=== PATIENT | male | born 1955 | race Caucasian/White ===

== ENCOUNTER 2024-02-02 08:57 | Inpatient (IN) ==
--- NOTE | 2024-02-02 09:26 | Emergency Department Note ---
Impression & Plan Cerebellar stroke, Ambulatory dysfunction ED Provider Note HISTORY OF PRESENT ILLNESS: Patient is a 68 year old male presenting with gait instability. Patient reports that yesterday morning he woke up and had difficulties walking around. States that when he ambulates he starts falling and leaning to the right and has to grab onto something to keep from falling over. Reports that this continued throughout the day yesterday, and when symptoms persisted into this morning, he decided to be evaluated. Patient reports he has been having daily headaches and upper neck pain for the last 6 months. Reports that he does not have a primary care provider and takes no medications. Denies any chest pain or shortness of breath. Denies any numbness, tingling or weakness in extremities. Reports that the vision in his right eye has been slightly blurry as compared to his left eye. ROS: as above PHYSICAL EXAM: Constitutional: Patient appears in no acute distress. HENT: Head: Normocephalic and atraumatic. Eyes: EOMI, PERRL Mouth/Throat: Mucous membranes moist. Neck: Trachea midline. Neck supple. Cardiovascular: RRR, No murmurs, rubs or gallops. Intact distal pulses. Pulmonary/Chest: No respiratory distress. Breath sounds clear and equal bilaterally. No wheezes or rales. Abdominal: Abdomen soft, no tenderness, rebound or guarding. Musculoskeletal: No edema, tenderness or deformity noted. Skin: Warm and dry. No rash, erythema, pallor or cyanosis Psychiatric: Appropriate mood and affect for situation. Neurological: Alert and keenly responsive. Facies symmetric. Able to raise eyebrows, close eyes, smile, puff mouth, stick out tongue, move tongue left and right and raise palate symmetrically. Able to shrug shoulders. PERRLA. SILT to forehead below eye and at jawline. Can hear soft noise bilaterally. Good finger to nose. Strength 5/5 in bilateral upper and lower extremities. SILT throughout bilateral upper and lower extremities. Patient does begin to fall to the right when ambulating. MDM: - Vitals signs showed hypertension and bradycardia. - History obtained via patient. History as above. - Chronic conditions affecting care: none - Differential diagnoses include, but are not limited to: CVA; intracranial hemorrhage; intracranial mass; ACS; dysrhythmia - Order placed for continuous cardiac monitoring. At this time, monitor showed rate of 50 bpm with normal sinus rhythm, per my interpretation. - External medical records reviewed. - EKG interpreted by myself showed normal sinus rhythm. Rate bradycardic at 58 bpm. QT 444. No acute ischemic changes. - Laboratory workup interpreted by myself showed normal WBC; normal PT/INR; stable electrolytes; normal troponin - CXR negative for pneumonia, per my interpretation - CT head wo contrast showed an old right cerebellar infarct. - CTA head/neck showed atherosclerotic plaque of the carotid bulbs resulting in 60% stenosis. - Patient's symptoms have been ongoing for >24 hours, so not a TNK candidate. - Given patient's symptoms and workup findings, will need admission for further stroke workup and medical optimization. - Discussion was had with case managers about patient's case and need for admission - Hospitalist consulted for admission - Patient admitted to [facility]ist service for further evaluation and management. ASSESSMENT AND PLAN: Diagnosis: cerebellar stroke; ambulatory dysfunction Plan: admit Past Med/Surg History Problem List (Updated 02/02/24 @ 11:21 by Deborah Saleh MD) Ambulatory dysfunction (Acute) Cerebellar stroke (Acute) Social History Smoking Status: Never smoker Preferred Language: Turkish Feels Safe at Home: Yes Allergies Allergies Allergy/AdvReac Type Severity Reaction Status Date / Time Penicillins Allergy Unknown RASH Verified 04/16/16 10:56 Home Meds Home Medications Medication Instructions Recorded Confirmed No Known Home Medications 02/02/24 02/02/24 Results & Data (ED) Vital Signs Vital Signs - 24 hr 02/02/24 09:00 02/02/24 09:12 02/02/24 09:21 Temperature 36.3 C L Temperature Source Temporal Artery Scan Pulse Rate 58 L 57 L Pulse Rate [Apical] Respiratory Rate 22 20 Respiratory Effort / Characteristics Respiratory Depth Blood Pressure 190/108 H 182/83 H Blood Pressure [Left Arm] Blood Pressure Mean 135 133 Blood Pressure Mean [Left Arm] Blood Pressure Position [Left Arm] Pulse Oximetry 95 Oxygen Delivery Method Oxygen Flow Rate Sepsis Recent Fever Within 48 Hours No Sepsis New/Unexplained Change in Mental Status N/A Sepsis Action Taken by Nursing No Action Required 02/02/24 09:21 02/02/24 09:21 02/02/24 09:21 Temperature Temperature Source Pulse Rate Pulse Rate [Apical] Respiratory Rate Respiratory Effort / Characteristics Respiratory Depth Blood Pressure 182/83 H 182/83 H 182/83 H Blood Pressure [Left Arm] Blood Pressure Mean 133 133 133 Blood Pressure Mean [Left Arm] Blood Pressure Position [Left Arm] Pulse Oximetry Oxygen Delivery Method Oxygen Flow Rate Sepsis Recent Fever Within 48 Hours Sepsis New/Unexplained Change in Mental Status Sepsis Action Taken by Nursing 02/02/24 09:21 02/02/24 09:22 02/02/24 09:24 Temperature Temperature Source Pulse Rate 58 L Pulse Rate [Apical] Respiratory Rate 14 Respiratory Effort / Characteristics Respiratory Depth Blood Pressure Blood Pressure [Left Arm] Blood Pressure Mean Blood Pressure Mean [Left Arm] Blood Pressure Position [Left Arm] Pulse Oximetry 96 96 Oxygen Delivery Method Room Air Room Air Oxygen Flow Rate 0 0 Sepsis Recent Fever Within 48 Hours Sepsis New/Unexplained Change in Mental Status Sepsis Action Taken by Nursing 02/02/24 09:25 02/02/24 09:27 02/02/24 09:43 Temperature Temperature Source Pulse Rate 59 L Pulse Rate [Apical] 75 Respiratory Rate 16 16 Respiratory Effort / Characteristics Respiratory Depth Blood Pressure Blood Pressure [Left Arm] 182/83 H Blood Pressure Mean Blood Pressure Mean [Left Arm] 116 Blood Pressure Position [Left Arm] Pulse Oximetry 96 96 Oxygen Delivery Method Room Air Room Air Oxygen Flow Rate Sepsis Recent Fever Within 48 Hours Sepsis New/Unexplained Change in Mental Status Sepsis Action Taken by Nursing 02/02/24 09:48 02/02/24 10:00 02/02/24 10:21 Temperature Temperature Source Pulse Rate 54 L 52 L 51 L Pulse Rate [Apical] Respiratory Rate 17 15 18 Respiratory Effort / Characteristics Respiratory Depth Blood Pressure Blood Pressure [Left Arm] Blood Pressure Mean Blood Pressure Mean [Left Arm] Blood Pressure Position [Left Arm] Pulse Oximetry Oxygen Delivery Method Oxygen Flow Rate Sepsis Recent Fever Within 48 Hours Sepsis New/Unexplained Change in Mental Status Sepsis Action Taken by Nursing 02/02/24 10:30 02/02/24 11:17 Temperature Temperature Source Pulse Rate 52 L Pulse Rate [Apical] 50 L Respiratory Rate 12 18 Respiratory Effort / Characteristics Non-Labored Spontaneous Respiratory Depth Normal Blood Pressure Blood Pressure [Left Arm] 188/88 H Blood Pressure Mean Blood Pressure Mean [Left Arm] 121 Blood Pressure Position [Left Arm] Sitting Pulse Oximetry 96 Oxygen Delivery Method Room Air Oxygen Flow Rate Sepsis Recent Fever Within 48 Hours Sepsis New/Unexplained Change in Mental Status Sepsis Action Taken by Nursing Laboratory Data 02/02/24 09:15 02/02/24 09:15 Lab Results 02/02/24 02/02/24 Range/Units 09:15 09:20 WBC 7.89 (4.8-10.8) K/ul RBC 5.31 (4.70-6.10) M/uL Hgb 15.4 (14.0-18.0) g/dl POC Hgb 15.6 (14.0-18.0) g/dl Hct 44.6 (42.0-52.0) % POC Hct 46 (42-52) % MCV 84.0 (80.0-100.0) fL MCH 29.0 (25.0-34.0) pg MCHC 34.5 (32.0-36.0) g/dL RDW Std Deviation 39.5 (36.4-46.3) fL RDW Coeff of Sage 12.9 (11.5-14.5) % Plt Count 199 (130-400) K/uL MPV 10.3 (9.4-12.4) fL PT 10.9 (9.0-12.0) Seconds INR 1.0 (0.9-1.1) APTT 21 (21-31) Seconds PTT Ratio 0.8 POC Sodium 138 (135-144) mmol/L Sodium 135 L (136-145) mmol/L POC Potassium 4.1 (3.3-5.0) mmol/L Potassium 4.3 (3.5-5.1) mmol/L POC Chloride 104 (101-112) mmol/L Chloride 105 (98-107) mmol/L Carbon Dioxide 23 (21-32) mmol/L POC Total CO2 22 L (24-31) mmol/L Anion Gap 7 (3-11) POC Anion Gap 16.0 (16-25) mmol/L POC BUN 19 H (7-18) mg/dl BUN 19 (6-23) mg/dl Creatinine 0.92 (0.6-1.4) mg/dl POC Creatinine 0.9 (0.6-1.3) mg/dl Est Cr Clr Drug Dosing Not Reportable Est GFR ( Amer) 100.1 ml/min Est GFR (Non-Af Amer) 86.4 ml/min BUN/Creatinine Ratio 20.7 H (10-20) Glucose 110 H (70-99(Fasting)) mg/dl POC Glucose (other) 110 H (70-99) mg/dl Calcium 9.7 (8.6-10.3) mg/dl POC Ioniz Calcium Hitesh 1.21 (1.12-1.32) mmol/l Magnesium 1.9 (1.7-2.4) mg/dl Total Bilirubin 0.6 (0.2-1.0) mg/dl AST 23 (13-39) U/L ALT 35 (7-52) U/L Alkaline Phosphatase 82 (34-104) U/L Troponin I High Sens 18.7 (0-20) pg/ml Total Protein 7.9 (6.0-8.3) gm/dl Albumin 4.4 (3.4-5.0) gm/dl Globulin 3.5 (2.5-4.0) gm/dl Albumin/Globulin Ratio 1.3 (0.9-2) Administered Medications Discontinued Medications Ioversol (Optiray 320 125ml) 119 ml IV ONCE ONE Stop: 02/02/24 09:37 Last Admin: 02/02/24 09:36 Dose: 119 ml Documented By: Gaurav [employer] Data Radiologist's Impression: Chest X-Ray 02/02/24 09:21 XR chest 1V portable HISTORY: Stroke symptoms. COMPARISON: None. FINDINGS: No pneumothorax. No pleural effusions. No focal lung consolidations to suggest a pneumonia. No evidence for pulmonary edema. The cardiac silhouette is mildly enlarged. No acute fractures. IMPRESSION: Mild cardiomegaly. Otherwise, no acute process within the chest. ACT 112: Negative or not required by law. Electronically signed by: Floyd Carvalho M.D. 02/02/2024 10:[address] 02/02/24 09:[address] DOSE: HISTORY: Neuro deficit, acute, stroke suspected TECHNIQUE: Multiaxial CT images of the head were performed without the use of intravenous contrast. Automated exposure control was utilized for this study. A dose lowering technique was utilized adhering to the principles of ALARA. Comparison: None. Findings: The paranasal sinuses and mastoid air cells are clear. The calvarium and skull base are intact. There is no mass, hematoma, midline shift, acute infarct. White matter hypodensity is nonspecific but suggestive of microvascular ischemic change. The ventricles and sulci demonstrate mild age-related involutional changes. Cephalization within the right inferior cerebellar hemisphere consistent with an old infarct. Impression: 1. No acute infarct or intracranial hemorrhage. 2. Old right cerebellar infarct. ACT 112: Negative or not required by law. Electronically signed by: Floyd Carvalho M.D. 02/02/2024 10:09 AM Head CTA 02/02/24 09:21 CT angio head w con, CT angio neck with con CLINICAL HISTORY: 68 years-old Male with gait instability - falling to R side. Acute strokelike symptoms COMPARISON STUDY: Head CT of same day TECHNIQUE: Following the IV administration of Optiray, CT angiogram of the head and neck was performed from the aortic arch to the skull apex. Images are reviewed in the axial, sagittal, and coronal planes. 3-D MIPS images are created and assessed. IV contrast was administered without complication. All measurements were obtained according to NASCET criteria. A dose lowering technique was utilized adhering to the principles of ALARA. CT DOSE: 1083.87 mGy.cm FINDINGS: CT ANGIOGRAM OF THE HEAD AND NECK: Three-vessel morphology of the thoracic aortic arch. There is patency of the innominate and image subclavian arteries. Common carotid arteries are patent. There is at least moderate atherosclerosis of the carotid bulbs and proximal cervical segments of the internal carotid arteries. There is less than 50% stenosis of the proximal cervical segment right ICA. There is approximately 60% stenosis of the proximal cervical segment left ICA. There is multifocal luminal narrowing of the right greater than left middle cerebral arteries which is probably mild. Mild stenosis of the anterior cerebral arteries. Dominant left vertebral artery which is patent. Atherosclerosis of the V4 segment results in mild stenosis. The right vertebral artery is developmentally diminutive and appears to terminate within the right PICA. There is mild to moderate multifocal stenoses within the posterior cerebral arteries.. Dural sinuses appear patent. Chronic appearing right cerebellar infarct. Lung apices are clear without pneumothorax. Unremarkable soft tissues. IMPRESSION: 1. Atherosclerotic plaque of the carotid bulbs results in 60% stenosis of the proximal cervical segment left ICA. 2. Mild multifocal stenoses of the intracranial arteries. 3. Chronic right cerebellar infarct. 4. No aneurysm, dissection, high-grade stenosis or arterial occlusion identified. ACT 112: Negative or not required by law. The above report was generated using voice recognition software. It may contain grammatical, syntax or spelling errors. Electronically signed by: Michael Beach M.D. 02/02/2024 10:18 AM Neck CTA 02/02/24 09:21 CT angio head w con, CT angio neck with con CLINICAL HISTORY: 68 years-old Male with gait instability - falling to R side. Acute strokelike symptoms COMPARISON STUDY: Head CT of same day TECHNIQUE: Following the IV administration of Optiray, CT angiogram of the head and neck was performed from the aortic arch to the skull apex. Images are reviewed in the axial, sagittal, and coronal planes. 3-D MIPS images are created and assessed. IV contrast was administered without complication. All measurements were obtained according to NASCET criteria. A dose lowering technique was utilized adhering to the principles of ALARA. CT DOSE: 1083.87 mGy.cm FINDINGS: CT ANGIOGRAM OF THE HEAD AND NECK: Three-vessel morphology of the thoracic aortic arch. There is patency of the innominate and image subclavian arteries. Common carotid arteries are patent. There is at least moderate atherosclerosis of the carotid bulbs and proximal cervical segments of the internal carotid arteries. There is less than 50% stenosis of the proximal cervical segment right ICA. There is approximately 60% stenosis of the proximal cervical segment left ICA. There is multifocal luminal narrowing of the right greater than left middle cerebral arteries which is probably mild. Mild stenosis of the anterior cerebral arteries. Dominant left vertebral artery which is patent. Atherosclerosis of the V4 segment results in mild stenosis. The right vertebral artery is developmentally diminutive and appears to terminate within the right PICA. There is mild to moderate multifocal stenoses within the posterior cerebral arteries.. Dural sinuses appear patent. Chronic appearing right cerebellar infarct. Lung apices are clear without pneumothorax. Unremarkable soft tissues. IMPRESSION: 1. Atherosclerotic plaque of the carotid bulbs results in 60% stenosis of the proximal cervical segment left ICA. 2. Mild multifocal stenoses of the intracranial arteries. 3. Chronic right cerebellar infarct. 4. No aneurysm, dissection, high-grade stenosis or arterial occlusion identified. ACT 112: Negative or not required by law. The above report was generated using voice recognition software. It may contain grammatical, syntax or spelling errors. Electronically signed by: Michael Beach M.D. 02/02/2024 10:18 AM Discharge Plan Visit Data Chief Complaint: Neuro Symptoms/Deficit Stated Complaint: DIZZY, LOSS OF BALANCE, NECK/HEAD PAIN ED Provider: Deborah Saleh Discharge Problem: Cerebellar stroke, Ambulatory dysfunction Forms Stand Alone Forms: [facility] Prescriptions Prescriptions: No Action No Known Home Medications Referrals Referrals: Red Chun DO [Primary Care Provider] -
[2024-02-02 09:32] LABS: iSTAT Creatinine 0.9 mg/dl (0.6-1.3); iSTAT Hemoglobin 15.6 g/dl (14.0-18.0); iSTAT Ionized Calcium 1.21 mmol/l (1.12-1.32); iSTAT Potassium 4.1 mmol/L (3.3-5.0)
[2024-02-02] MEDS: OPTIRAY 320 125ml IV ONE (09:36)
[2024-02-02 09:56] LABS: Hematocrit (blood only) 44.6 % (42.0-52.0); Hemoglobin 15.4 g/dl (14.0-18.0); Mean Corpuscular Hgb Conc 34.5 g/dL (32.0-36.0); Mean Platelet Volume 10.3 fL (9.4-12.4); Platelet Count 199 K/uL (130-400); RDW Coefficient of Variation 12.9 % (11.5-14.5); RDW Standard Deviation 39.5 fL (36.4-46.3); Red Blood Count 5.31 M/uL (4.70-6.10); White Blood Count 7.89 K/ul (4.8-10.8)
--- NOTE | 2024-02-02 10:10 | CT Scan Report ---
HEAD CT NONCONTRAST CT DOSE: HISTORY: Neuro deficit, acute, stroke suspected TECHNIQUE: Multiaxial CT images of the head were performed without the use of intravenous contrast. A utomated exposure control was utilized for this study. A dose lowering technique was utilized adheri ng to the principles of ALARA. Comparison: None. Findings: The paranasal sinuses and mastoid air cells are clear. The calvarium and skull base are int act. There is no mass, hematoma, midline shift, acute infarct. White matter hypodensity is nonspecifi c but suggestive of microvascular ischemic change. The ventricles and sulci demonstrate mild age-rela monica involutional changes. Cephalization within the right inferior cerebellar hemisphere consistent wi th an old infarct. Impression: 1. No acute infarct or intracranial hemorrhage. 2. Old right cerebellar infarct. ACT 112: Negative or not required by law. Electronically signed by: Floyd Carvalho M.D. 02/02/2024 10:09 AM
[2024-02-02 10:15] LABS: Partial Thromboplastin Ratio 0.8; Partial Thromboplastin Time 21 Seconds (21-31); Prothrombin Time 10.9 Seconds (9.0-12.0)
[2024-02-02 10:17] LABS: Alanine Aminotransferase 35 U/L (7-52); Albumin Globulin Ratio 1.3 (0.9-2); Albumin Level 4.4 gm/dl (3.4-5.0); Alkaline Phosphatase 82 U/L (34-104); Anion Gap 7 (3-11); Aspartate Aminotransferase 23 U/L (13-39); BUN Creatinine Ratio 20.7 (10-20); Bilirubin,Total 0.6 mg/dl (0.2-1.0); Blood Urea Nitrogen 19 mg/dl (6-23); Calcium 9.7 mg/dl (8.6-10.3); Carbon Dioxide 23 mmol/L (21-32); Chloride 105 mmol/L (98-107); Est GFR (African American) 100.1 ml/min; Est GFR (Non-African American) 86.4 ml/min; Globulin 3.5 gm/dl (2.5-4.0); Glucose 110 mg/dl (70-99(Fasting)); Magnesium 1.9 mg/dl (1.7-2.4); Potassium 4.3 mmol/L (3.5-5.1); Sodium 135 mmol/L (136-145); Total Protein 7.9 gm/dl (6.0-8.3)
--- NOTE | 2024-02-02 10:20 | CT Scan Report ---
CT angio head w con, CT angio neck with con CLINICAL HISTORY: 68 years-old Male with gait instability - falling to R side. Acute strokelike sy mptoms COMPARISON STUDY: Head CT of same day TECHNIQUE: Following the IV administration of Optiray, CT angiogram of the head and neck was performe d from the aortic arch to the skull apex. Images are reviewed in the axial, sagittal, and coronal joe danitza. 3-D MIPS images are created and assessed. IV contrast was administered without complication. All measurements were obtained according to NASCET criteria. A dose lowering technique was utilized adhe ring to the principles of ALARA. CT DOSE: 1083.87 mGy.cm FINDINGS: CT ANGIOGRAM OF THE HEAD AND NECK: Three-vessel morphology of the thoracic aortic arch. There is patency of the innominate and image sub clavian arteries. Common carotid arteries are patent. There is at least moderate atherosclerosis of t he carotid bulbs and proximal cervical segments of the internal carotid arteries. There is less than 50% stenosis of the proximal cervical segment right ICA. There is approximately 60% stenosis of the p roximal cervical segment left ICA. There is multifocal luminal narrowing of the right greater than left middle cerebral arteries which i s probably mild. Mild stenosis of the anterior cerebral arteries. Dominant left vertebral artery whic h is patent. Atherosclerosis of the V4 segment results in mild stenosis. The right vertebral artery i s developmentally diminutive and appears to terminate within the right PICA. There is mild to moderat e multifocal stenoses within the posterior cerebral arteries.. Dural sinuses appear patent. Chronic appearing right cerebellar infarct. Lung apices are clear without pneumothorax. Unremarkable soft tissues. IMPRESSION: 1. Atherosclerotic plaque of the carotid bulbs results in 60% stenosis of the proximal cervical segme nt left ICA. 2. Mild multifocal stenoses of the intracranial arteries. 3. Chronic right cerebellar infarct. 4. No aneurysm, dissection, high-grade stenosis or arterial occlusion identified. ACT 112: Negative or not required by law. The above report was generated using voice recognition software. It may contain grammatical, syntax o r spelling errors. Electronically signed by: Michael Beach M.D. 02/02/2024 10:18 AM
[2024-02-02 10:22] LABS: Troponin I High Sensitivity 18.7 pg/ml (0-20)
--- NOTE | 2024-02-02 10:44 | XRay Report ---
XR chest 1V portable HISTORY: Stroke symptoms. COMPARISON: None. FINDINGS: No pneumothorax. No pleural effusions. No focal lung consolidations to suggest a pneumonia. No evidence for pulmonary edema. The cardiac silhouette is mildly enlarged. No acute fractures. IMPRESSION: Mild cardiomegaly. Otherwise, no acute process within the chest. ACT 112: Negative or not required by law. Electronically signed by: Floyd Carvalho M.D. 02/02/2024 10:42 AM
--- NOTE | 2024-02-02 11:43 | History & Physical Report ---
Date of Service February 02, 2024 Assessment & Plan (1) Ambulatory dysfunction: (2) Cerebellar stroke: Plan Pt is a 68yoM with PMHx significant for OA s/p left total hip arthroplasty presenting with with gait unsteadiness/imbalance where he states he falls to the right. Gait Imbalance Ambulatory dysfunction Vision changes Pt states for the past day, has been falling to the right as he walks Also notes new pain behind the right eye with blurry vision, notes he does use glasses Head CT, head and neck CTA noting a chronic right cerebellar infarct, no new infarcts Head and neck CTA also noting "Atherosclerotic plaque of the carotid bulbs results in 60% stenosis of the proximal cervical segment left ICA and Mild multifocal stenoses of the intracranial arteries" MRI brain pending to rule out acute stroke AM hgba1c and lipid panel Started on atorvastatin 40mg daily and aspirin 81mg for secondary prevention Neurology consulted, appreciate further recs PT/OT, speech evals fall precautions Uncontrolled hypertension BP elevated at 190/108 on arrival, has since trended down EKG noting sinus bradycardia with occasional PVCs Trop trend of 18.7 to elevated 21.5 thus far Echo ordered and pending in setting of above Will allow permissive HTN until acute stroke ruled out with MRI Continue to monitor Sinus Bradycardia HR in the 50s EKG noting sinus bradycardia with occasional PVCs Echo ordered and pending Continue to monitor on telemetry Diet: HH (passed dysphagia screen) DVT prophlaxis: SCDs until cleared by Neuro for chemical ppx Dispo: admit to med/surg with tele History of Present Illness Chief Complaint: falls to the right Primary Care Provider: Phillip Hopkins MD Pt is a 68yoM with PMHx significant for OA s/p left total hip arthroplasty presenting with with gait unsteadiness/imbalance where he states he falls to the right. Hx obtained mostly from pt, sister also at bedside. Pt states that he started noticing the difficulty with ambulation from the day before, has been leaning to the right when he falls. States he has also noted pain behind his right eye with blurry vision that started around that time. His sister does note that he wears glasses at baseline and does not have them with him currently. He denies any trauma to the right eye, states it feels swollen. He states he has been having headaches for months that started as neck pain. Anita stiff and sore. Denies trouble swallowing. Denies chest pain, SOB or palpitations. Denies N/V or abdominal pain. States he does get lower extremity swelling that seems worse at the end of the day. Notes that he does not have a pcp and is not on medications currently. Denies using any OTC medication. States he last followed with [facility] about a year and a half ago when he had his hip replaced. Allergies Allergy/AdvReac Type Severity Reaction Status Date / Time Penicillins Allergy Unknown RASH Verified 04/16/16 10:56 Home Medications Medication Instructions Recorded Confirmed Type No Known Home Medications 02/02/24 02/02/24 History Past Med/Surg History Problem List (Updated 02/02/24 @ 11:21 by Deborah Saleh MD) Ambulatory dysfunction (Acute) Cerebellar stroke (Acute) Social History Smoking Status: Never smoker Preferred Language: Greek Feels Safe at Home: Yes Review of Systems Review of Systems: All systems reviewed & are unremarkable except as noted in Subjective Physical Exam Physical Exam: General: Alert, orientedx3. No acute distress Skin: No noted rashes or bruises Psych: Appropriate mood and affect Neuro: right eye appears smaller than the left, sitting up with arms outstretched, pt sways to the right occasionally. Strength equal, 5/5 in both upper and lower extremities bilaterally. HEENT: NC/AT, right eye appears smaller than left CV: RRR Resp: Breath sounds clear bilaterally, no increased effort of breathing. Abdomen: Soft, nontender Extremities: Trace edema in lower extremities bilaterally. Results & Data Results & Data Vital Signs (Past 12 Hours) Vital Signs Temp Pulse Pulse Resp BP BP Pulse Ox 02/02/24 11:17 50 L 18 188/88 H 96 02/02/24 10:30 52 L 12 02/02/24 10:21 51 L 18 02/02/24 10:00 52 L 15 02/02/24 09:48 54 L 17 02/02/24 09:43 59 L 02/02/24 09:27 16 96 02/02/24 09:25 75 16 182/83 H 96 02/02/24 09:24 96 02/02/24 09:22 96 02/02/24 09:21 58 L 14 02/02/24 09:21 182/83 H 02/02/24 09:21 182/83 H 02/02/24 09:21 182/83 H 02/02/24 09:21 182/83 H 02/02/24 09:12 57 L 20 02/02/24 09:00 36.3 C L 58 L 22 190/108 H 95 O2 Del Method O2 Flow Rate 02/02/24 11:17 Room Air 02/02/24 10:30 02/02/24 10:21 02/02/24 10:00 02/02/24 09:48 02/02/24 09:43 02/02/24 09:27 Room Air 02/02/24 09:25 Room Air 02/02/24 09:24 Room Air 0 02/02/24 09:22 Room Air 0 02/02/24 09:21 02/02/24 09:21 02/02/24 09:21 02/02/24 09:21 02/02/24 09:21 02/02/24 09:12 02/02/24 09:00 Diagnostic Findings Chest X-Ray 02/02/24 09:21 XR chest 1V portable HISTORY: Stroke symptoms. COMPARISON: None. FINDINGS: No pneumothorax. No pleural effusions. No focal lung consolidations to suggest a pneumonia. No evidence for pulmonary edema. The cardiac silhouette is mildly enlarged. No acute fractures. IMPRESSION: Mild cardiomegaly. Otherwise, no acute process within the chest. ACT 112: Negative or not required by law. Electronically signed by: Floyd Carvalho M.D. 02/02/2024 10:[address] 02/02/24 09:[address] DOSE: HISTORY: Neuro deficit, acute, stroke suspected TECHNIQUE: Multiaxial CT images of the head were performed without the use of intravenous contrast. Automated exposure control was utilized for this study. A dose lowering technique was utilized adhering to the principles of ALARA. Comparison: None. Findings: The paranasal sinuses and mastoid air cells are clear. The calvarium a nd skull base are intact. There is no mass, hematoma, midline shift, acute infarct. White matter hypodensity is nonspecific but suggestive of microvascular ischemic change. The ventricles and sulci demonstrate mild age-related involutional changes. Cephalization within the right inferior cerebellar hemisphere consistent with an old infarct. Impression: 1. No acute infarct or intracranial hemorrhage. 2. Old right cerebellar infarct. ACT 112: Negative or not required by law. Electronically signed by: Floyd Carvalho M.D. 02/02/2024 10:09 AM Head CTA 02/02/24 09:21 CT angio head w con, CT angio neck with con CLINICAL HISTORY: 68 years-old Male with gait instability - falling to R side. Acute strokelike symptoms COMPARISON STUDY: Head CT of same day TECHNIQUE: Following the IV administration of Optiray, CT angiogram of the head and neck was performed from the aortic arch to the skull apex. Images are reviewed in the axial, sagittal, and coronal planes. 3-D MIPS images are created and assessed. IV contrast was administered without complication. All measurements were obtained according to NASCET criteria. A dose lowering technique was utilized adhering to the principles of ALARA. CT DOSE: 1083.87 mGy.cm FINDINGS: CT ANGIOGRAM OF THE HEAD AND NECK: Three-vessel morphology of the thoracic aortic arch. There is patency of the innominate and image subclavian arteries. Common carotid arteries are patent. There is at least moderate atherosclerosis of the carotid bulbs and proximal cervical segments of the internal carotid arteries. There is less than 50% stenosis of the proximal cervical segment right ICA. There is approximately 60% stenosis of the proximal cervical segment left ICA. There is multifocal luminal narrowing of the right greater than left middle cerebral arteries which is probably mild. Mild stenosis of the anterior cerebral arteries. Dominant left vertebral artery which is patent. Atherosclerosis of the V4 segment results in mild stenosis. The right vertebral artery is developmentally diminutive and appears to terminate within the right PICA. There is mild to moderate multifocal stenoses within the posterior cerebral arteries.. Dural sinuses appear patent. Chronic appearing right cerebellar infarct. Lung apices are clear without pneumothorax. Unremarkable soft tissues. IMPRESSION: 1. Atherosclerotic plaque of the carotid bulbs results in 60% stenosis of the proximal cervical segment left ICA. 2. Mild multifocal stenoses of the intracranial arteries. 3. Chronic right cerebellar infarct. 4. No aneurysm, dissection, high-grade stenosis or arterial occlusion identified. ACT 112: Negative or not required by law. The above report was generated using voice recognition software. It may contain grammatical, syntax or spelling errors. Electronically signed by: Michael Beach M.D. 02/02/2024 10:18 AM Neck CTA 02/02/24 09:21 CT angio head w con, CT angio neck with con CLINICAL HISTORY: 68 years-old Male with gait instability - falling to R side. Acute strokelike symptoms COMPARISON STUDY: Head CT of same day TECHNIQUE: Following the IV administration of Optiray, CT angiogram of the head and neck was performed from the aortic arch to the skull apex. Images are reviewed in the axial, sagittal, and coronal planes. 3-D MIPS images are created and assessed. IV contrast was administered without complication. All measurements were obtained according to NASCET criteria. A dose lowering technique was utilized adhering to the principles of ALARA. CT DOSE: 1083.87 mGy.cm FINDINGS: CT ANGIOGRAM OF THE HEAD AND NECK: Three-vessel morphology of the thoracic aortic arch. There is patency of the innominate and image subclavian arteries. Common carotid arteries are patent. There is at least moderate atherosclerosis of the carotid bulbs and proximal cervical segments of the internal carotid arteries. There is less than 50% stenosis of the proximal cervical segment right ICA. There is approximately 60% stenosis of the proximal cervical segment left ICA. There is multifocal luminal narrowing of the right greater than left middle cerebral arteries which is probably mild. Mild stenosis of the anterior cerebral arteries. Dominant left vertebral artery which is patent. Atherosclerosis of the V4 segment results in mild stenosis. The right vertebral artery is developmentally diminutive and appears to terminate within the right PICA. There is mild to moderate multifocal stenoses within the posterior cerebral arteries.. Dural sinuses appear patent. Chronic appearing right cerebellar infarct. Lung apices are clear without pneumothorax. Unremarkable soft tissues.
--- NOTE | 2024-02-02 11:50 | Electrocardiogram Report ---
Test Reason : Blood Pressure : / mmHG Vent. Rate : 058 BPM Atrial Rate : 058 BPM P-R Int : 188 ms QRS Dur : 110 ms QT Int : 444 ms P-R-T Axes : 008 -05 045 degrees QTc Int : 435 ms Sinus bradycardia with occasional Premature ventricular complexes Incomplete right bundle branch block Borderline ECG No previous ECGs available Confirmed by Gibran Castrejon ([id number]) on 02/02/2024 11:50:35 AM Referred By: Confirmed By:Gibran Castrejon
[2024-02-02] MEDS ORDERED: ONDANSETRON INJ 2 MG/ML 2 ML VIAL IV PRN (13:48)
[2024-02-02] MEDS ORDERED: POLYETHYLENE (MIRALAX) 17 GM PACK PO PRN (13:48)
[2024-02-02] MEDS: ATORVASTATIN 40 MG TAB PO SCH (14:24)
[2024-02-02] MEDS: ASPIRIN 81 MG ECTAB PO SCH (14:24)
[2024-02-02] MEDS: GADOBUTROL 65ML VIAL IV ONE (18:28)
--- NOTE | 2024-02-02 18:54 | Magnetic Resonance Report ---
MRI OF THE BRAIN WITHOUT AND WITH IV CONTRAST CLINICAL HISTORY: r/o stroke, falls to right COMPARISON STUDY: Head CT and CTA of the head performed earlier today. TECHNIQUE: Utilizing a 1.5 Maday magnet and dedicated coil, multiplanar, multiecho imaging of the br ain was performed pre and postcontrast administration. IV administration of 11.6 mL of Gadavist cont rast was uneventful. FINDINGS: There is a small 3 mm round focus of restricted diffusion within the right aspect of the me dulla oblongata on axial diffusion-weighted sequence image 5 of 24. This is hypointense on the ADC ma p. There is corresponding T2 hyperintensity. There is no mass effect. There is no evidence for acute hemorrhage. No additional acute infarcts are present. An old infarct within the inferior right cerebe llar hemisphere is present. The ventricular system is unremarkable. The basal cisterns are patent. Th ere are no extra-axial collections. Flow-voids for the major intracranial vessels are present. There is no intracanalicular mass or pathologic enhancement. Scattered white matter T2 hyperintense foci re present moderate small vessel disease. Calvarial signal is normal. IMPRESSION: 1. Small 3 mm acute infarct within the right aspect of the medulla oblongata. No additional acute inf arcts. 2. Old right cerebellar infarct. 3. No intracranial mass or pathologic enhancement. ACT 112: Negative or not required by law. Electronically signed by: Slade Murdock M.D. 02/02/2024 6:52 PM
--- NOTE | 2024-02-02 19:28 | Neurology Consultation ---
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 Recommend the following: --Aspirin 81mg daily and plavix 75mg daily for 21 days, then aspirin alone -- Agree with lipitor 40mg daily -- Okay to lower BP to normotension, okay for DVT ppx -- Therapy evals, suspect he will go home -- follow-up with neurology in 4-6 weeks with plan to repeat CTA in 3 months -- headache management with tylenol, can re-address as an outpatient. Telehealth Consultation Telehealth Information Telehealth Information: I performed this visit using a real-time telehealth connection between my location and the patients location ([facility]). After connecting through interactive tele-video, patient was identified by name and date of and/or wristband check.Patient (or authorized healthcare client services representative) was informed that this was a telemedicine visit and it was being conducted confidentially over secure lines. My office door was closed and no one else was present in the room with me.Patient (or authorized healthcare client services representative) provided consent to proceed with the visit, expressed an understanding of privacy and security of the telemedicine visit, and gave permission to have a hospital client services representative in the room in order to assist with the visit and to conduct portions of the visit, as needed. I informed the patient (or authorized healthcare client services representative) that I reviewed their record and presented the opportunity for them to ask any questions regarding the visit today. The patient agreed to participate. History of Present Illness Reason for Consultation: Stroke Requesting Physician: Dr. Gay Attending Physician: Raquel Gay MD History of Present Illness Abraham Layton is a 68 yo M presenting with headache, neck pain and leaning to the R. 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 He denies any specific recollection of stroke symptoms - no weakness, ataxia, gait instability. Then, a day ago he noticed he was walking to the R and needed to hold on to things to prevent falling. He also noted that the R eyelid was droopy. He denies any change in speech or numbness, no change in hot/cold discrimination. Otherwise no history of stroke, has not been on any antiplatelets and has not seen a PCP since 2021. Allergies Allergy/AdvReac Type Severity Reaction Status Date / Time Penicillins Allergy Unknown RASH Verified 04/16/16 10:56 Home Medications Medication Instructions Recorded Confirmed Type No Known Home Medications 02/02/24 02/02/24 History Patient History Social History Smoking Status: Never smoker Second Hand Exposure: No; Do You Dip or Chew Tobacco: No; Tobacco Cessation Education Requested by Patient: No Hx Alcohol Use: No Hx Substance Use: No Preferred Language: Guinean Communication Ability: Effective Beliefs That Will Affect Care: Presybeterian Current Living Situation: Alone Feels Safe at Home: Yes Safety Concerns: Feels Safe At This Time Assistive Devices: None Review of Systems +gait instability Physical Exam Neurological Examination: Mental Status: Awake and alert. Oriented to person, place, and time. Fluent. Comprehension intact. Affect appropriate. Cranial Nerves: II: Reads NIHSS cards, pupils 3/3 to 2/2, mandujano grossly intact. +R ptosis III/IV/: Versions intact without nystagmus, no gaze preference. V: Facial sensation symmetric to light touch VII: Facial expression symmetric VIII: Hearing intact to voice XII: Tongue midline Motor: Strength was symmetric and antigravity throughout. Pronator drift was absent. There were no abnormal movements. Coordination: Finger to nose and heel to abreu were intact. Reflexes: Unable to assess over telemedicine Results & Data Vital Signs (Past 12 Hours) Vital Signs Temp Pulse Pulse Resp BP BP Pulse Ox 02/02/24 15:54 36.7 C 54 L 16 182/79 H 96 02/02/24 14:26 52 L 02/02/24 13:56 36.6 C 52 L 15 184/79 H 96 02/02/24 13:00 54 L 18 162/98 H 97 02/02/24 11:45 36.6 C 52 L 15 184/79 H 96 02/02/24 11:17 50 L 18 188/88 H 96 02/02/24 10:30 52 L 12 02/02/24 10:21 51 L 18 02/02/24 10:00 52 L 15 02/02/24 09:48 54 L 17 02/02/24 09:43 59 L 02/02/24 09:27 16 96 02/02/24 09:25 75 16 182/83 H 96 02/02/24 09:24 96 02/02/24 09:22 96 02/02/24 09:21 58 L 14 02/02/24 09:21 182/83 H 02/02/24 09:21 182/83 H 02/02/24 09:21 182/83 H 02/02/24 09:21 182/83 H 02/02/24 09:12 57 L 20 02/02/24 09:00 36.3 C L 58 L 22 190/108 H 95 O2 Del Method O2 Flow Rate 02/02/24 15:54 Room Air 02/02/24 14:26 02/02/24 13:56 Room Air 02/02/24 13:00 Room Air 02/02/24 11:45 Room Air 02/02/24 11:17 Room Air 02/02/24 10:30 02/02/24 10:21 02/02/24 10:00 02/02/24 09:48 02/02/24 09:43 02/02/24 09:27 Room Air 02/02/24 09:25 Room Air 02/02/24 09:24 Room Air 0 02/02/24 09:22 Room Air 0 02/02/24 09:21 02/02/24 09:21 02/02/24 09:21 02/02/24 09:21 02/02/24 09:21 02/02/24 09:12 02/02/24 09:00 Diagnostic Findings MRI brain - R lateral medullary stroke CTA - R V4 dissection
[2024-02-02] MEDS: hydrALAZINE HCL 20 MG/ML VIAL IV ONE (20:34)
[2024-02-03 06:30] LABS: Hematocrit (blood only) 44.5 % (42.0-52.0); Hemoglobin 15.2 g/dl (14.0-18.0); Mean Corpuscular Hemoglobin 29.2 pg (25.0-34.0); Mean Corpuscular Hgb Conc 34.2 g/dL (32.0-36.0); Mean Corpuscular Volume 85.4 fL (80.0-100.0); Mean Platelet Volume 9.8 fL (9.4-12.4); Platelet Count 206 K/uL (130-400); RDW Coefficient of Variation 12.9 % (11.5-14.5); RDW Standard Deviation 40.2 fL (36.4-46.3); Red Blood Count 5.21 M/uL (4.70-6.10); White Blood Count 8.49 K/ul (4.8-10.8)
[2024-02-03 06:52] LABS: BUN Creatinine Ratio 20.2 (10-20); Calcium 9.4 mg/dl (8.6-10.3); Chol HDL Ratio 3.8 (0-5); Creatinine Clr Calc Pharmacy 90.7 ml/min; Est GFR (African American) 91.6 ml/min; Phosphorus 2.8 mg/dl (2.5-4.9); Potassium 4.2 mmol/L (3.5-5.1)
[2024-02-03 06:55] LABS: Estimated Average Glucose 108 mg/dl; Hemoglobin A1C 5.4 % (4.5-5.6)
[2024-02-03] MEDS: CLOPIDOGREL BISULFATE 75 MG TAB PO SCH (10:22)
--- NOTE | 2024-02-03 11:59 | Hospitalist Progress Note ---
Date of Service February 03, 2024 Assessment & Plan (1) Ambulatory dysfunction: (2) Cerebellar stroke: Plan Pt is a 68yoM with PMHx significant for OA s/p left total hip arthroplasty presenting with with gait unsteadiness/imbalance where he states he falls to the right. Acute Medullary stroke Chronic cerebellar stroke Gait Imbalance Ambulatory dysfunction Vision changes Pt states for the past day, has been falling to the right as he walks Also notes new pain behind the right eye with blurry vision, notes he does use glasses Head CT, head and neck CTA noting a chronic right cerebellar infarct, no new infarcts Head and neck CTA also noting "Atherosclerotic plaque of the carotid bulbs results in 60% stenosis of the proximal cervical segment left ICA and Mild multifocal stenoses of the intracranial arteries" MRI brain noting "small 3 mm acute infarct within the right aspect of the medulla oblongata" and "Old right cerebellar infarct" Hgba1c normal and lipid panel normal Started on atorvastatin 40mg daily and aspirin 81mg Neurology consulted, stated/recommended the following: -Abraham Layton is a 68 yo M presenting with chronic R cerebellar stroke but acute R lateral medullary stroke in the setting of 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 Started on plavix daily as above, continue for 21 days total PT/OT recommending acute rehab speech eval-passed dysphagia screen fall precautions Uncontrolled hypertension BP elevated at 190/108 on arrival, has since trended down EKG noting sinus bradycardia with occasional PVCs Trop trend of 18.7 to elevated 21.5, back down to 18.2 Echo ordered and pending in setting of above Per Neurology, "Okay to lower BP to normotension", no need for permissive HTN at this time Started on lisinopril 10mg BID with prn IV hydralazine 10mg q8h for SBP> 160 Continue to monitor Sinus Bradycardia HR in the 50s EKG noting sinus bradycardia with occasional PVCs Echo ordered and pending With use of prn hydralazine anticipate a reflex tachycardia Continue to monitor on telemetry Diet: HH (passed dysphagia screen) DVT prophlaxis: SCDs until cleared by Neuro for chemical ppx Dispo: admit to med/surg with tele Admission and Anticipated Discharge Date Admission Date: February 02, 2024 Subjective Seen sitting in bed States that he worked with PT earlier and he was still falling to the right. Otherwise denied acute concerns. Review of Systems Review of Systems: All systems reviewed & are unremarkable except as noted in Subjective Physical Exam Physical Exam: General: Alert, orientedx3. No acute distress Skin: No noted rashes or bruises Psych: Appropriate mood and affect Neuro: right eye appears smaller than the left, strength equal, 5/5 in both upper and lower extremities bilaterally. HEENT: NC/AT CV: RRR Resp: Breath sounds clear bilaterally, no increased effort of breathing. Abdomen: Soft, nontender Extremities: Trace edema in lower extremities bilaterally. Results & Data Results & Data Vital Signs (Past 12 Hours) Vital Signs Temp Pulse Pulse Resp BP Pulse Ox O2 Del Method 02/03/24 07:55 36.7 C 51 L 18 174/74 H 93 Room Air 02/03/24 07:21 53 L 02/03/24 02:41 36.8 C 54 L 18 163/76 H 95 Room Air Diagnostic Findings Chest X-Ray 02/02/24 09:21 XR chest 1V portable HISTORY: Stroke symptoms. COMPARISON: None. FINDINGS: No pneumothorax. No pleural effusions. No focal lung consolidations to suggest a pneumonia. No evidence for pulmonary edema. The cardiac silhouette is mildly enlarged. No acute fractures. IMPRESSION: Mild cardiomegaly. Otherwise, no acute process within the chest. ACT 112: Negative or not required by law. Electronically signed by: Floyd Carvalho M.D. 02/02/2024 10:[address] 02/02/24 09:[address] DOSE: HISTORY: Neuro deficit, acute, stroke suspected TECHNIQUE: Multiaxial CT images of the head were performed without the use of intravenous contrast. Automated exposure control was utilized for this study. A dose lowering technique was utilized adhering to the principles of ALARA. Comparison: None. Findings: The paranasal sinuses and mastoid air cells are clear. The calvarium and skull base are intact. There is no mass, hematoma, midline shift, acute infarct. White matter hypodensity is nonspecific but suggestive of microvascular ischemic change. The ventricles and sulci demonstrate mild age-related involutional changes. Cephalization within the right inferior cerebellar hemisphere consistent with an old infarct. Impression: 1. No acute infarct or intracranial hemorrhage. 2. Old right cerebellar infarct. ACT 112: Negative or not required by law. Electronically signed by: Floyd Carvalho M.D. 02/02/2024 10:09 AM Head CTA 02/02/24 09:21 CT angio head w con, CT angio neck with con CLINICAL HISTORY: 68 years-old Male with gait instability - falling to R side. Acute strokelike symptoms COMPARISON STUDY: Head CT of same day TECHNIQUE: Following the IV administration of Optiray, CT angiogram of the head and neck was performed from the aortic arch to the skull apex. Images are reviewed in the axial, sagittal, and coronal planes. 3-D MIPS images are created and assessed. IV contrast was administered without complication. All measurements were obtained according to NASCET criteria. A dose lowering technique was utilized adhering to the principles of ALARA. CT DOSE: 1083.87 mGy.cm FINDINGS: CT ANGIOGRAM OF THE HEAD AND NECK: Three-vessel morphology of the thoracic aortic arch. There is patency of the innominate and image subclavian arteries. Common carotid arteries are patent. There is at least moderate atherosclerosis of the carotid bulbs and proximal cervical segments of the internal carotid arteries. There is less than 50% stenosis of the proximal cervical segment right ICA. There is approximately 60% stenosis of the proximal cervical segment left ICA. There is multifocal luminal narrowing of the right greater than left middle cerebral arteries which is probably mild. Mild stenosis of the anterior cerebral arteries. Dominant left vertebral artery which is patent. Atherosclerosis of the V4 segment results in mild stenosis. The right vertebral artery is developmentally diminutive and appears to terminate within the right PICA. There is mild to moderate multifocal stenoses within the posterior cerebral arteries.. Dural sinuses appear patent. Chronic appearing right cerebellar infarct. Lung apices are clear without pneumothorax. Unremarkable soft tissues. IMPRESSION: 1. Atherosclerotic plaque of the carotid bulbs results in 60% stenosis of the proximal cervical segment left ICA. 2. Mild multifocal stenoses of the intracranial arteries. 3. Chronic right cerebellar infarct. 4. No aneurysm, dissection, high-grade stenosis or arterial occlusion identified. ACT 112: Negative or not required by law. The above report was generated using voice recognition software. It may contain grammatical, syntax or spelling errors. Electronically signed by: Michael Beach M.D. 02/02/2024 10:18 AM Neck CTA 02/02/24 09:21 CT angio head w con, CT angio neck with con CLINICAL HISTORY: 68 years-old Male with gait instability - falling to R side. Acute strokelike symptoms COMPARISON STUDY: Head CT of same day TECHNIQUE: Following the IV administration of Optiray, CT angiogram of the head and neck was performed from the aortic arch to the skull apex. Images are reviewed in the axial, sagittal, and coronal planes. 3-D MIPS images are created and assessed. IV contrast was administered without complication. All measurements were obtained according to NASCET criteria. A dose lowering technique was utilized adhering to the principles of ALARA. CT DOSE: 1083.87 mGy.cm FINDINGS: CT ANGIOGRAM OF THE HEAD AND NECK: Three-vessel morphology of the thoracic aortic arch. There is patency of the innominate and image subclavian arteries. Common carotid arteries are patent. There is at least moderate atherosclerosis of the carotid bulbs and proximal cervical segments of the internal carotid arteries. There is less than 50% stenosis of the proximal cervical segment right ICA. There is approximately 60% stenosis of the proximal cervical segment left ICA. There is multifocal luminal narrowing of the right greater than left middle cerebral arteries which is probably mild. Mild stenosis of the anterior cerebral arteries. Dominant left vertebral artery which is patent. Atherosclerosis of the V4 segment results in mild stenosis. The right vertebral artery is developmentally diminutive and appears to terminate within the right PICA. There is mild to moderate multifocal stenoses within the posterior cerebral arteries.. Dural sinuses appear patent. Chronic appearing right cerebellar infarct. Lung apices are clear without pneumothorax. Unremarkable soft tissues. IMPRESSION: 1. Atherosclerotic plaque of the carotid bulbs results in 60% stenosis of the proximal cervical segment left ICA. 2. Mild multifocal stenoses of the intracranial arteries. 3. Chronic right cerebellar infarct. 4. No aneurysm, dissection, high-grade stenosis or arterial occlusion identified. ACT 112: Negative or not required by law. The above report was generated using voice recognition software. It may contain grammatical, syntax or spelling errors. Electronically signed by: Michael Beach M.D. 02/02/2024 10:18 AM Brain MRI 02/02/24 12:04 MRI OF THE BRAIN WITHOUT AND WITH IV CONTRAST CLINICAL HISTORY: r/o stroke, falls to right COMPARISON STUDY: Head CT and CTA of the head performed earlier today. TECHNIQUE: Utilizing a 1.5 Maday magnet and dedicated coil, multiplanar, multiecho imaging of the brain was performed pre and postcontrast administration. IV administration of 11.6 mL of Gadavist contrast was uneventful. FINDINGS: There is a small 3 mm round focus of restricted diffusion within the right aspect of the medulla oblongata on axial diffusion-weighted sequence image . This is hypointense on the ADC map. There is corresponding T2 hy perintensity. There is no mass effect. There is no evidence for acute hemorrhage. No additional acute infarcts are present. An old infarct within the inferior right cerebellar hemisphere is present. The ventricular system is unremarkable. The basal cisterns are patent. There are no extra-axial collections. Flow-voids for the major intracranial vessels are present. There is no intracanalicular mass or pathologic enhancement. Scattered white matter T2 hyperintense foci represent moderate small vessel disease. Calvarial signal is normal. IMPRESSION: 1. Small 3 mm acute infarct within the right aspect of the medulla oblongata. No additional acute infarcts. 2. Old right cerebellar infarct. 3. No intracranial mass or pathologic enhancement. ACT 112: Negative or not required by law. Electronically signed by: Slade Murdock M.D. 02/02/2024 6:52 PM
[2024-02-03] MEDS: lisinopril 10 MG TAB PO SCH (12:02)
[2024-02-03] MEDS ORDERED: hydrALAZINE HCL 20 MG/ML VIAL IV PRN (13:26)
[2024-02-03] MEDS: ACETAMINOPHEN 500 MG TAB PO PRN (19:27)
[2024-02-03] MEDS: HEPARIN SOD 5,000 UNIT/0.5 ML VIAL SQ SCH (20:29)
[2024-02-04 07:19] LABS: Hemoglobin 14.7 g/dl (14.0-18.0); Mean Corpuscular Hemoglobin 28.9 pg (25.0-34.0); Mean Corpuscular Hgb Conc 34.2 g/dL (32.0-36.0); Mean Corpuscular Volume 84.5 fL (80.0-100.0); Mean Platelet Volume 9.9 fL (9.4-12.4); Platelet Count 206 K/uL (130-400); RDW Standard Deviation 39.8 fL (36.4-46.3); Red Blood Count 5.09 M/uL (4.70-6.10)
[2024-02-04 07:43] LABS: BUN Creatinine Ratio 24.3 (10-20); Calcium 9.3 mg/dl (8.6-10.3); Creatinine Clr Calc Pharmacy 87.1 ml/min; Est GFR (African American) 87.3 ml/min; Est GFR (Non-African American) 75.3 ml/min; Potassium 4.4 mmol/L (3.5-5.1)
--- NOTE | 2024-02-04 10:11 | Cardiology Consultation ---
Date of Consultation February 04, 2024 Assessment & Plan (1) Old inferior wall myocardial infarction: (2) AIVR (accelerated idioventricular rhythm): (3) Cerebellar stroke: (4) Vertebral artery dissection: (5) Dyslipidemia, goal LDL below 70: Plan Results of echocardiogram reviewed with patient at length demonstrating old inferior posterior myocardial infarction. Currently asymptomatic without anginal symptoms. Recommend further risk stratification with exercise stress echo or pharmacologic stress testing when he has recovered from cerebrovascular accident. Continue medical therapy with aspirin, statin, and clopidogrel. In regard to asymptomatic, nocturnal accelerated interventricular rhythm, recommend further evaluation of possible underlying sleep apnea. Nocturnal pulse ox trend ordered. Assess TSH and serum magnesium level. Replace electrolytes as indicated. I do not believe patient would tolerate beta-sandra therapy due to resting bradycardia. Continue telemetry monitoring. I spent a total of 60 minutes on the date of service in preparation, delivery, and documentation of the care provided to this patient, excluding any time spent in the performance of separately billed services. History of Present Illness Reason for Consultation: Cardiac hypokinesis on echo, bradycardia Requesting Physician: Dr. Gay Attending Physician: Raquel Gay MD History of Present Illness 68-year-old male present to the emergency department 02/02/2024 due to gait instability. He awoke in the morning reporting balance issues. Reports "falling and leaning to the right". Notes daily headaches and upper neck pain for the past 3 to 6 months. Continues to note headache today. Diagnosed with vertebral artery dissection, right chronic cerebellar stroke but acute right lateral medullary stroke. Neurology recommending dual antiplatelet therapy and atorvastatin. Plan for repeat CTA in 3 months. Echocardiogram performed on admission demonstrating an inferior and posterior wall motion abnormality. Patient denies prior history of coronary disease, or myocardial infarction. Reports taking no medications prior to admission. Denies any recent episodes of chest discomfort or unusual shortness of breath. 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 Able to perform activities of daily living including yard work and climbing stairs without anginal symptoms. ECG reviewed from the [employer] demonstrating possible age- indeterminate inferior infarct in 2021. Telemetry reviewed demonstrating sinus bradycardia and episodes of accelerated idioventricular rhythm during sleep. Denies history of sleep apnea or heavy snoring. Allergies Allergy/AdvReac Type Severity Reaction Status Date / Time Penicillins Allergy Unknown RASH Verified 10/05/16 10:56 Home Medications Medication Instructions Recorded Confirmed Type No Known Home Medications 02/02/24 02/02/24 History Patient History Social History Smoking Status: Never smoker Second Hand Exposure: No; Do You Dip or Chew Tobacco: No; Tobacco Cessation Education Requested by Patient: No Hx Alcohol Use: No Hx Substance Use: No Preferred Language: Serbian Communication Ability: Effective Beliefs That Will Affect Care: Rastafari Current Living Situation: Alone Feels Safe at Home: Yes Safety Concerns: Feels Safe At This Time Assistive Devices: Cane and Walker Review of Systems Review of Systems: All systems reviewed & are unremarkable except as noted in Subjective Physical Exam Constitutional: well nourished; no acute distress Respiratory: no respiratory distress, no labored breathing and no retractions Auscultation: lungs clear to auscultation bilaterally; no crackles, no rales, no rhonchi and no wheezes Cardiovascular: Rate/Rhythm: regular rate and regular rhythm Heart Sounds: normal S1 and normal S2 Vessels: radial pulses present; no JVD and no carotid bruit Gastrointestinal (Abdomen): Inspection/Auscultation: abdomen normal to inspection and normal bowel sounds; abdomen not distended Neurologic: CN's II-XI intact bilaterally and moves all extremities; no focal motor deficits Results & Data Vital Signs (Past 12 Hours) Vital Signs Temp Pulse Pulse Resp BP Pulse Ox O2 Del Method 02/04/24 07:58 36.8 C 49 L 16 135/70 95 Room Air 02/04/24 07:20 Room Air 02/04/24 07:02 48 L 02/04/24 03:49 37.0 C 49 L 18 146/81 H 94 Room Air 02/03/24 23:56 36.5 C 52 L 18 152/71 H 95 Room Air 02/03/24 23:15 51 L Laboratory Results CBC 02/04/24 Range/Units 06:46 WBC 7.90 (4.8-10.8) K/ul RBC 5.09 (4.70-6.10) M/uL Hgb 14.7 (14.0-18.0) g/dl Hct 43.0 (42.0-52.0) % Plt Count 206 (130-400) K/uL Comprehensive Metabolic Panel 02/04/24 Range/Units 06:46 Sodium 134 L (136-145) mmol/L Potassium 4.4 (3.5-5.1) mmol/L Chloride 102 (98-107) mmol/L Carbon Dioxide 26 (21-32) mmol/L BUN 25 H (6-23) mg/dl Creatinine 1.03 (0.6-1.4) mg/dl Glucose 101 H (70-99(Fasting)) mg/dl Calcium 9.3 (8.6-10.3) mg/dl Intake and Output 02/03/24 02/04/24 02/04/24 22:59 06:59 14:59 Intake Total 550 / 1270 Output Total 501 / 1001 Balance 49 / 269 Intake: Oral 550 / 1270 Output: Urine 500 / 1000 # Bowel Movements
[2024-02-04 10:30] LABS: Magnesium 2.1 mg/dl (1.7-2.4)
[2024-02-04 10:46] LABS: Thyroid Stimulating Hormone 3.511 uIu/ml (0.300-4.500)
[2024-02-04] MEDS: NEOMYCIN/POLYMYXIN/DEXAMETHA OP OINT 3.5 GM TUBE OP SCH (13:17)
--- NOTE | 2024-02-04 14:10 | Hospitalist Progress Note ---
Date of Service February 04, 2024 Assessment & Plan (1) Ambulatory dysfunction: (2) Cerebellar stroke: Plan Pt is a 68yoM with PMHx significant for OA s/p left total hip arthroplasty presenting with with gait unsteadiness/imbalance where he states he falls to the right. Acute Medullary stroke Chronic cerebellar stroke Gait Imbalance Ambulatory dysfunction Vision changes Pt states for the past day, has been falling to the right as he walks Also notes new pain behind the right eye with blurry vision, notes he does use glasses Head CT, head and neck CTA noting a chronic right cerebellar infarct, no new infarcts Head and neck CTA also noting "Atherosclerotic plaque of the carotid bulbs results in 60% stenosis of the proximal cervical segment left ICA and Mild multifocal stenoses of the intracranial arteries" MRI brain noting "small 3 mm acute infarct within the right aspect of the medulla oblongata" and "Old right cerebellar infarct" Hgba1c normal and lipid panel normal Echo noting EF 50-55%, mild LVH, mod inferior/posterior wall hypokinesis/ak inesis, LA mild dilation, aortic valve sclerosis, mild aortic valve sclerosis w/o stenosis Started on atorvastatin 40mg daily and aspirin 81mg Neurology consulted, stated/recommended the following: -"Abraham Layton is a 68 yo M presenting with chronic R cerebellar stroke but acute R lateral medullary stroke in the setting of 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" Started on plavix daily as above, continue for 21 days total PT/OT recommending acute rehab speech eval-passed dysphagia screen Case discussed with curator of photography and prints Dr Justino Thompson on 02/03 who advised the following: -using Tobradex drops or NeoPolyDex drops with a little steroid in it QID x 5 days for a mild conjunctivitis. -Does not think that his medullary stroke would cause these findings. States it would usually cause eye movement issues like nystagmus. -Can see him upon discharge if he doesnt already have an eye doctor Pt started on maxitrol eye ointment as advised above fall precautions Uncontrolled hypertension BP elevated at 190/108 on arrival, has since trended down EKG noting sinus bradycardia with occasional PVCs Trop trend of 18.7 to elevated 21.5, back down to 18.2 Echo noting EF 50-55%, mild LVH, mod inferior/posterior wall hypokinesis/akinesis, LA mild dilation, aortic valve sclerosis, mild aortic valve sclerosis w/o stenosis Per Neurology, "Okay to lower BP to normotension", no need for permissive HTN at this time Started on lisinopril 10mg BID with prn IV hydralazine 10mg q8h for SBP> 160 Continue to monitor Old Inferior Wall WA Echo noting mod inferior/posterior wall hypokinesis/akinesis Cardiology consulted, appreciate recs. States/recommended the following: -"Results of echocardiogram reviewed with patient at length demonstrating old inferior posterior myocardial infarction. -Currently asymptomatic without anginal symptoms. -Recommend further risk stratification with exercise stress echo or pharmacologic stress testing when he has recovered from cerebrovascular accident. -Continue medical therapy with aspirin, statin, and clopidogrel." Cardiology followup after discharge for needed testing Sinus Bradycardia Accelerated interventricular rhythm HR in the 50s EKG noting sinus bradycardia with occasional PVCs Echo noting EF 50-55%, mild LVH, mod inferior/posterior wall hypokinesis/akinesis, LA mild dilation, aortic valve sclerosis, mild aortic valve sclerosis w/o stenosis Cardiology consulted as noted above. States/recommended the following: -"In regard to asymptomatic, nocturnal accelerated interventricular rhythm, recommend further evaluation of possible underlying sleep apnea. -Nocturnal pulse ox trend ordered. -Assess TSH and serum magnesium level. -Replace electrolytes as indicated. -I do not believe patient would tolerate beta-sandra therapy due to resting bradycardia. -Continue telemetry monitoring." TSH and magnesium normal Follow nocturnal pulse ox trend Continue to monitor on telemetry Diet: HH (passed dysphagia screen) DVT prophlaxis: on heparin SQ Dispo: acute rehab in AM Admission and Anticipated Discharge Date Admission Date: February 02, 2024 Subjective Pt was seen in the AM. Sitting in bed, notes right eye still feels swollen with blurry vision. Eyedrops not really helping. States HR has always been low. denies chest pain, SOB, palpitations. Review of Systems Review of Systems: All systems reviewed & are unremarkable except as noted in Subjective Physical Exam Physical Exam: General: Alert, orientedx3. No acute distress Skin: No noted rashes or bruises Psych: Appropriate mood and affect Neuro: right eye appears smaller than the left, strength equal, 5/5 in both upper and lower extremities bilaterally. HEENT: NC/AT CV: RRR Resp: Breath sounds clear bilaterally, no increased effort of breathing. Abdomen: Soft, nontender Extremities: Trace edema in lower extremities bilaterally. Results & Data Results & Data Vital Signs (Past 12 Hours) Vital Signs Temp Pulse Pulse Resp BP Pulse Ox O2 Del Method 02/04/24 14:05 54 L 02/04/24 11:39 37.3 C 54 L 16 144/73 H 92 Room Air 02/04/24 07:58 36.8 C 49 L 16 135/70 95 Room Air 02/04/24 07:20 Room Air 02/04/24 07:02 48 L 02/04/24 03:49 37.0 C 49 L 18 146/81 H 94 Room Air
[2024-02-05 06:52] LABS: Hematocrit (blood only) 44.5 % (42.0-52.0); Hemoglobin 14.7 g/dl (14.0-18.0); Mean Corpuscular Hemoglobin 28.7 pg (25.0-34.0); Mean Corpuscular Volume 86.7 fL (80.0-100.0); Mean Platelet Volume 9.7 fL (9.4-12.4); Platelet Count 214 K/uL (130-400); RDW Coefficient of Variation 13.2 % (11.5-14.5); RDW Standard Deviation 40.9 fL (36.4-46.3); Red Blood Count 5.13 M/uL (4.70-6.10); White Blood Count 7.74 K/ul (4.8-10.8)
[2024-02-05 07:10] LABS: BUN Creatinine Ratio 26.7 (10-20); Calcium 9.5 mg/dl (8.6-10.3); Creatinine Clr Calc Pharmacy 85.6 ml/min; Est GFR (African American) 85.3 ml/min; Est GFR (Non-African American) 73.6 ml/min; Magnesium 2.2 mg/dl (1.7-2.4); Phosphorus 3.7 mg/dl (2.5-4.9); Potassium 4.5 mmol/L (3.5-5.1)
--- NOTE | 2024-02-05 11:15 | Cardiology Consultation ---
Date of Consultation February 05, 2024 Assessment & Plan (1) AIVR (accelerated idioventricular rhythm): (2) Sinus node dysfunction: (3) Cerebellar stroke: Plan 1. Ventricular rhythm: He has a frequent ventricular rhythm which is around the same heart rate as his sinus rhythm and probably represents an escape rhythm, it is somewhat faster than a typical ventricular rhythm. Based on the telemetry 6- lead electrocardiogram the origin is in the upper portion of the ventricle, I c annot tell if it is right or left-sided without a formal twelve-lead electrocardiogram but that may not be important at the moment. This suggests that it is not originating from the site of the prior infarction. There is evidence of retrograde atrial activation which may help maintain this rhythm suppressing sinus node function. If this becomes problematic mapping and ablation are a possibility, it might be prudent to perform some type of monitoring to determine the burden. Since it is asymptomatic treatment is probably not necessary, beta-blockade may be relatively contraindicated due to his resting bradycardia. 2. Sinus node dysfunction: He does appear to have sinus node dysfunction with a low heart rate on no medications. This does not seem to be symptomatic. Ordinarily I would use beta-blockade to treat his ventricular arrhythmia but with his resting bradycardia that may not be a good idea although he is asymptomatic. 3. Cerebellar stroke: It appears that his acute right medullary stroke is due to a vertebral dissection, but he also has an old right cerebellar stroke. I cannot tell from neurology consult whether this is felt to be the same origin and not to embolism, if it is thought to be embolic perhaps monitoring for atrial fibrillation would be a consideration. We have no evidence of this however. History of Present Illness Reason for Consultation: Ventricular rhythm Attending Physician: Raquel Gay MD History of Present Illness This is a 68-year-old retired male who has not had a lot of contact with the medical system in recent years. 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 On echocardiography he was noted to have inferior and posterior wall motion abnormalities although has no history of coronary artery disease. His overall left ventricular function was low normal with an ejection fraction of 50 to 55% with mild concentric left ventricular hypertrophy. He did have aortic sclerosis but no stenosis. On telemetry he was noted to have periods of idioventricular rhythm, the rate is around 53 bpm and his sinus rhythm is similar in rate. From telemetry I am able to print out a 6-lead electrocardiogram, since the lead position is not standard it may not be terribly accurate but no twelve-lead is available of his rhythm. This 6-lead electrocardiogram shows an inferior axis indicating an origin in the upper portion of the ventricle, which could be the outflow tract. Retrograde atrial activity seems to be present on longer runs. He was on no medications at home and here he is on no medications to slow his heart rate. His presenting electrocardiogram shows sinus rhythm at 58 bpm with an incomplete right bundle branch block. He does not seem to have any symptoms related to either his bradycardia or his ventricular rhythm. He denies difficulty with exertion and has no lightheadedness, dizziness or palpitations. Allergies Allergy/AdvReac Type Severity Reaction Status Date / Time Penicillins Allergy Unknown RASH Verified 04/16/16 10:56 Home Medications Medication Instructions Recorded Confirmed Type No Known Home Medications 02/02/24 02/02/24 History Patient History Social History Smoking Status: Never smoker Second Hand Exposure: No; Do You Dip or Chew Tobacco: No; Tobacco Cessation Education Requested by Patient: No Hx Alcohol Use: No Hx Substance Use: No Preferred Language: Sammarinese Communication Ability: Effective Beliefs That Will Affect Care: Rastafarian Current Living Situation: Alone Feels Safe at Home: Yes Safety Concerns: Feels Safe At This Time Assistive Devices: Cane and Walker Review of Systems Review of Systems: All systems reviewed & are unremarkable except as noted in HPI & below Physical Exam Physical Exam: Constitutional: Alert, cooperative and in no distress. HEENT: Unremarkable Neck: No jugular venous distention, carotid pulses are normal and equal bilaterally without bruits. Pulmonary: Clear to auscultation bilaterally. Cardiac: Regular rhythm with no murmur, gallop or rub. Abdomen: Soft, nontender with normal bowel sounds. Extremities: No edema. Distal pulses intact. Neurologic: No focal findings. Gait is steady. Skin: No rash, ecchymoses or petechiae. Results & Data Vital Signs (Past 12 Hours) Vital Signs Temp Pulse Pulse Pulse Resp BP BP 02/05/24 07:37 36.8 C 48 L 18 145/89 H 02/05/24 07:31 48 L 02/05/24 03:09 36.9 C 51 L 16 144/76 H 02/05/24 02:17 51 L 02/04/24 23:34 57 L Pulse Ox Pulse Ox O2 Del Method O2 Del Method 02/05/24 07:37 97 Room Air 02/05/24 07:31 02/05/24 03:09 95 Room Air 02/05/24 02:17 97 Room Air 02/04/24 23:34 Laboratory Results CBC 02/05/24 Range/Units 06:15 WBC 7.74 (4.8-10.8) K/ul RBC 5.13 (4.70-6.10) M/uL Hgb 14.7 (14.0-18.0) g/dl Hct 44.5 (42.0-52.0) % Plt Count 214 (130-400) K/uL Comprehensive Metabolic Panel 02/05/24 Range/Units 06:15 Sodium 135 L (136-145) mmol/L Potassium 4.5 (3.5-5.1) mmol/L Chloride 104 (98-107) mmol/L Carbon Dioxide 26 (21-32) mmol/L BUN 28 H (6-23) mg/dl Creatinine 1.05 (0.6-1.4) mg/dl Glucose 102 H (70-99(Fasting)) mg/dl Calcium 9.5 (8.6-10.3) mg/dl Intake and Output 02/04/24 02/05/24 02/05/24 22:59 06:59 14:59 Intake Total 375 / 1495 400 / 1495 Output Total 525 / 1675 550 / 1675 Balance -150 / -180 -150 / -180 Intake: Oral 375 / 1495 400 / 1495 Output: Urine 525 / 1675 550 / 1675 Other: # Unmeasured Voids 1 Weight 116 kg Diagnostic Findings Telemetry: Sinus bradycardia predominantly, periods of ventricular rhythm with a heart rate in the 50s. Possibly parasystolic. PG Care Time/CCT Total # of Minutes Spent Total Time Spent with Patient: Total time spent is greater than 50% in coordination of care (as documented) at patient's floor/unit and/or counseling patient: Coding Level of Care Code 96565 INT INP/OBS CARE 2/55MIN Diagnoses AIVR (accelerated idioventricular rhythm) I44.2 Sinus node dysfunction I49.5 Cerebellar stroke I63.9
[2024-02-05 11:27] LABS: Lyme Screen Rflx Confirmation Positive (Negative)
[2024-02-05 12:01] LABS: Lyme Ab IgG 2nd Tier Confirm Negative (Negative); Lyme Ab IgM 2nd Tier Confirm Negative (Negative)
--- NOTE | 2024-02-05 13:24 | Hospitalist Progress Note ---
Date of Service February 05, 2024 Assessment & Plan (1) Ambulatory dysfunction: (2) Cerebellar stroke: Plan Pt is a 68yoM with PMHx significant for OA s/p left total hip arthroplasty presenting with with gait unsteadiness/imbalance where he states he falls to the right. Acute Medullary stroke Chronic cerebellar stroke Gait Imbalance Ambulatory dysfunction Vision changes Pt states for the past day, has been falling to the right as he walks Also notes new pain behind the right eye with blurry vision, notes he does use glasses Head CT, head and neck CTA noting a chronic right cerebellar infarct, no new infarcts Head and neck CTA also noting "Atherosclerotic plaque of the carotid bulbs results in 60% stenosis of the proximal cervical segment left ICA and Mild multifocal stenoses of the intracranial arteries" MRI brain noting "small 3 mm acute infarct within the right aspect of the medulla oblongata" and "Old right cerebellar infarct" Hgba1c normal and lipid panel normal Echo noting EF 50-55%, mild LVH, mod inferior/posterior wall hypokinesis/ak inesis, LA mild dilation, aortic valve sclerosis, mild aortic valve sclerosis w/o stenosis Started on atorvastatin 40mg daily and aspirin 81mg Neurology consulted, stated/recommended the following: -"Abraham Layton is a 68 yo M presenting with chronic R cerebellar stroke but acute R lateral medullary stroke in the setting of 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" Started on plavix daily as above, continue for 21 days total PT/OT recommending acute rehab speech eval-passed dysphagia screen Case discussed with chuck tender Dr Justino Tohmpson on 02/03 who advised the following: -using Tobradex drops or NeoPolyDex drops with a little steroid in it QID x 5 days for a mild conjunctivitis. -Does not think that his medullary stroke would cause these findings. States it would usually cause eye movement issues like nystagmus. -Can see him upon discharge if he doesnt already have an eye doctor Pt started on maxitrol eye ointment as advised above fall precautions Uncontrolled hypertension BP elevated at 190/108 on arrival, has since trended down EKG noting sinus bradycardia with occasional PVCs Trop trend of 18.7 to elevated 21.5, back down to 18.2 Echo noting EF 50-55%, mild LVH, mod inferior/posterior wall hypokinesis/akinesis, LA mild dilation, aortic valve sclerosis, mild aortic valve sclerosis w/o stenosis Per Neurology, "Okay to lower BP to normotension", no need for permissive HTN at this time Started on lisinopril 10mg BID with prn IV hydralazine 10mg q8h for SBP> 160 Continue to monitor 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 States/recommended the following: -"Results of echocardiogram reviewed with patient at length demonstrating old inferior posterior myocardial infarction. -Currently asymptomatic without anginal symptoms. -Recommend further risk stratification with exercise stress echo or pharmacologic stress testing when he has recovered from cerebrovascular accident. -Continue medical therapy with aspirin, statin, and clopidogrel." Cardiology followup after discharge for needed testing Sinus Bradycardia Accelerated interventricular rhythm HR in the 50s EKG noting sinus bradycardia with occasional PVCs Echo noting EF 50-55%, mild LVH, mod inferior/posterior wall hypokinesis/akinesis, LA mild dilation, aortic valve sclerosis, mild aortic valve sclerosis w/o stenosis Cardiology consulted as noted above. States/recommended the following: -"In regard to asymptomatic, nocturnal accelerated interventricular rhythm, recommend further evaluation of possible underlying sleep apnea. -Nocturnal pulse ox trend ordered. -Assess TSH and serum magnesium level. -Replace electrolytes as indicated. -I do not believe patient would tolerate beta-sandra therapy due to resting bradycardia. -Continue telemetry monitoring." TSH and magnesium normal Follow nocturnal pulse ox trend Continue to monitor on telemetry 02/04- EP consult for further recs today. Diet: HH (passed dysphagia screen) DVT prophlaxis: on heparin SQ Dispo: acute rehab in AM Admission and Anticipated Discharge Date Admission Date: February 02, 2024 Subjective Pt states eye feels the same, stilll blurry. Walking with a walker and doing ok. Denies palpitations. anxious for discharge. Review of Systems Review of Systems: All systems reviewed & are unremarkable except as noted in Subjective Physical Exam Physical Exam: General: Alert, orientedx3. No acute distress Skin: No noted rashes or bruises Psych: Appropriate mood and affect Neuro: right eye appears smaller than the left, strength equal, 5/5 in both upper and lower extremities bilaterally. HEENT: NC/AT CV: RRR Resp: Breath sounds clear bilaterally, no increased effort of breathing. Abdomen: Soft, nontender Extremities: Trace edema in lower extremities bilaterally. Results & Data Results & Data Vital Signs (Past 12 Hours) Vital Signs Temp Pulse Pulse Pulse Resp BP BP 02/05/24 11:36 37 C 75 18 126/70 02/05/24 07:37 36.8 C 48 L 18 145/89 H 02/05/24 07:31 48 L 02/05/24 03:09 36.9 C 51 L 16 144/76 H 02/05/24 02:17 51 L Pulse Ox Pulse Ox O2 Del Method O2 Del Method 02/05/24 11:36 93 Room Air 02/05/24 07:37 97 Room Air 02/05/24 07:31 02/05/24 03:09 95 Room Air 02/05/24 02:17 97 Room Air
--- NOTE | 2024-02-05 15:38 | Cardiology Progress Note ---
Date of Service February 05, 2024 Assessment & Plan (1) Old inferior wall myocardial infarction: (2) AIVR (accelerated idioventricular rhythm): (3) Cerebellar stroke: (4) Vertebral artery dissection: (5) Dyslipidemia, goal LDL below 70: Plan Results of echocardiogram reviewed with patient demonstrating old inferior posterior myocardial infarction. Currently asymptomatic without anginal symptoms. Recommend further risk stratification with exercise stress echo or pharmacologic stress testing when he has recovered from cerebrovascular accident. Continue medical therapy with aspirin, statin, and clopidogrel. Asymptomatic accelerated interventricular rhythm noted on telemetry. No evidence of significant sleep apnea per nocturnal pulse ox trend. TSH within normal limits. His Lyme screen is positive, however, confirmatory IgG and IgM are negative. Appreciate electrophysiology input. No intervention recommended at this time. No further inpatient cardiac testing or intervention recommended at this time. Cardiology will sign off. Please call with additional concerns/questions. I spent a total of 50 minutes on the date of service in preparation, delivery, and documentation of the care provided to this patient, excluding any time spent in the performance of separately billed services. Admission and Anticipated Discharge Date Admission Date: February 02, 2024 Subjective 68-year-old male seen and examined at bedside. Offers no complaints. Anxious for discharge. Telemetry reveals sinus rhythm as well as episodes of asymptomatic accelerated ventricular rhythm. No tacky or bradycardia dysrhythmias recorded. Denies lightheadedness, dizziness, syncope, or near syncope. No palpitations or chest discomfort. Review of Systems Review of Systems: All systems reviewed & are unremarkable except as noted in Subjective Physical Exam Constitutional: well nourished; no acute distress Respiratory: no respiratory distress, no labored breathing and no retractions Auscultation: lungs clear to auscultation bilaterally; no crackles, no rales, no rhonchi and no wheezes Cardiovascular: Rate/Rhythm: regular rate and regular rhythm Heart Sounds: normal S1 and normal S2 Vessels: radial pulses present; no JVD and no carotid bruit Gastrointestinal (Abdomen): Inspection/Auscultation: abdomen normal to inspection and normal bowel sounds; abdomen not distended Neurologic: CN's II-XI intact bilaterally and moves all extremities; no focal motor deficits Results & Data Vital Signs (Past 12 Hours) Vital Signs Temp Pulse Pulse Resp BP Pulse Ox O2 Del Method 02/05/24 11:36 37 C 75 18 126/70 93 Room Air 02/05/24 07:37 36.8 C 48 L 18 145/89 H 97 Room Air 02/05/24 07:31 48 L Laboratory Results CBC 02/05/24 Range/Units 06:15 WBC 7.74 (4.8-10.8) K/ul RBC 5.13 (4.70-6.10) M/uL Hgb 14.7 (14.0-18.0) g/dl Hct 44.5 (42.0-52.0) % Plt Count 214 (130-400) K/uL Comprehensive Metabolic Panel 02/05/24 Range/Units 06:15 Sodium 135 L (136-145) mmol/L Potassium 4.5 (3.5-5.1) mmol/L Chloride 104 (98-107) mmol/L Carbon Dioxide 26 (21-32) mmol/L BUN 28 H (6-23) mg/dl Creatinine 1.05 (0.6-1.4) mg/dl Glucose 102 H (70-99(Fasting)) mg/dl Calcium 9.5 (8.6-10.3) mg/dl Intake and Output 02/05/24 02/05/24 02/05/24 06:59 14:59 22:59 Intake Total 400 / 1495 600 / 600 Output Total 550 / 1675 Balance -150 / -180 599 / 599 Intake: Oral 400 / 1495 600 / 600 Output: Urine 550 / 1675 # Bowel Movements Other: Weight 116 kg
[2024-02-06 07:19] LABS: Hematocrit (blood only) 43.9 % (42.0-52.0); Hemoglobin 14.8 g/dl (14.0-18.0); Mean Corpuscular Hemoglobin 29.2 pg (25.0-34.0); Mean Corpuscular Hgb Conc 33.7 g/dL (32.0-36.0); Mean Corpuscular Volume 86.8 fL (80.0-100.0); Mean Platelet Volume 9.9 fL (9.4-12.4); Platelet Count 196 K/uL (130-400); RDW Coefficient of Variation 13.2 % (11.5-14.5); RDW Standard Deviation 40.8 fL (36.4-46.3); Red Blood Count 5.06 M/uL (4.70-6.10); White Blood Count 8.14 K/ul (4.8-10.8)
[2024-02-06 07:46] LABS: BUN Creatinine Ratio 25.7 (10-20); Calcium 9.3 mg/dl (8.6-10.3); Est GFR (African American) 85.3 ml/min; Est GFR (Non-African American) 73.6 ml/min; Magnesium 2.2 mg/dl (1.7-2.4); Phosphorus 4.1 mg/dl (2.5-4.9); Potassium 4.4 mmol/L (3.5-5.1)
--- NOTE | 2024-02-06 12:40 | Discharge Summary ---
Discharge Summary Date of Service February 06, 2024 Principal Dx & Hospital Course #1 = Principal Diagnosis (1) Ambulatory dysfunction: (2) Cerebellar stroke: (3) Lateral medullary syndrome: Plan Pt is a 68yoM with PMHx significant for OA s/p left total hip arthroplasty presenting with with gait unsteadiness/imbalance where he states he falls to the right. 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 Also notes new pain behind the right eye with blurry vision, notes he does use glasses Head CT, head and neck CTA noting a chronic right cerebellar infarct, no new infarcts Head and neck CTA also noting "Atherosclerotic plaque of the carotid bulbs results in 60% stenosis of the proximal cervical segment left ICA and Mild multifocal stenoses of the intracranial arteries" MRI brain noting "small 3 mm acute infarct within the right aspect of the medulla oblongata" and "Old right cerebellar infarct" Hgba1c normal and lipid panel normal Echo noting EF 50-55%, mild LVH, mod inferior/posterior wall hypokinesis/akinesis, LA mild dilation, aortic valve sclerosis, mild aortic valve sclerosis w/o stenosis Started on atorvastatin 40mg daily and aspirin 81mg Neurology consulted, stated/recommended the following: -"Abraham Layton is a 68 yo M presenting with chronic R cerebellar stroke but acute R lateral medullary stroke in the setting of 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" Started on plavix daily as above, continue for 21 days total, then aspirin daily alone PT/OT recommending acute rehab, pt discharged speech eval-passed dysphagia screen Case discussed with can tester Dr Justino Thompson on 02/03 who advised the following: -using Tobradex drops or NeoPolyDex drops with a little steroid in it QID x 5 days for a mild conjunctivitis. -Does not think that his medullary stroke would cause these findings. States it would usually cause eye movement issues like nystagmus. -Can see him upon discharge if he doesnt already have an eye doctor Pt started on maxitrol eye ointment as advised above. Pt did not want to continue on day of discharge as he notes some numbness around the eye. Likely related to his medullary syndrome. fall precautions Pt discharged with atorvastatin, aspirin and plavix (17 more doses). Close Neurology follow up after discharge. Uncontrolled hypertension BP elevated at 190/108 on arrival, has since trended down EKG noting sinus bradycardia with occasional PVCs Trop trend of 18.7 to elevated 21.5, back down to 18.2 Echo noting EF 50-55%, mild LVH, mod inferior/posterior wall hypokinesis/akinesis, LA mild dilation, aortic valve sclerosis, mild aortic valve sclerosis w/o stenosis Per Neurology, "Okay to lower BP to normotension", no need for permissive HTN at this time Started on lisinopril 10mg BID with prn IV hydralazine 10mg q8h for SBP> 160 Discharged with lisinopril 10mg BID PCP followup for continued monitoring and med adjustment as needed. 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 States/recommended the following: -"Results of echocardiogram reviewed with patient at length demonstrating old inferior posterior myocardial infarction. -Currently asymptomatic without anginal symptoms. -Recommend further risk stratification with exercise stress echo or pharmacologic stress testing when he has recovered from cerebrovascular accident. -Continue medical therapy with aspirin, statin, and clopidogrel." Cardiology followup after discharge for needed testing Sinus Bradycardia Accelerated interventricular rhythm HR in the 50s EKG noting sinus bradycardia with occasional PVCs Echo noting EF 50-55%, mild LVH, mod inferior/posterior wall hypokinesis/akinesis, LA mild dilation, aortic valve sclerosis, mild aortic valve sclerosis w/o stenosis Cardiology consulted as noted above. States/recommended the following: -"Asymptomatic accelerated interventricular rhythm noted on telemetry. No evidence of significant sleep apnea per nocturnal pulse ox trend. TSH within normal limits. His Lyme screen is positive, however, confirmatory IgG and IgM are negative. Appreciate electrophysiology input. No intervention recommended at this time. No further inpatient cardiac testing or intervention recommended at this time. -I do not believe patient would tolerate beta-sandra therapy due to resting bradycardia. -Continue telemetry monitoring." Assistant To The Ceo Dr Sav Licea was consulted by cardiology. He stated the following: "1. Ventricular rhythm: He has a frequent ventricular rhythm which is around the same heart rate as his sinus rhythm and probably represents an escape rhythm, it is somewhat faster than a typical ventricular rhythm. Based on the telemetry 6-lead electrocardiogram the origin is in the upper portion of the ventricle, I cannot tell if it is right or left-sided without a formal twelve- lead electrocardiogram but that may not be important at the moment. This suggests that it is not originating from the site of the prior infarction. There is evidence of retrograde atrial activation which may help maintain this rhythm suppressing sinus node function. If this becomes problematic mapping and ablation are a possibility, it might be prudent to perform some type of monitoring to determine the burden. Since it is asymptomatic treatment is probably not necessary, beta-blockade may be relatively contraindicated due to his resting bradycardia. 2. Sinus node dysfunction: He does appear to have sinus node dysfunction with a low heart rate on no medications. This does not seem to be symptomatic. Ordinarily I would use beta-blockade to treat his ventricular arrhythmia but with his resting bradycardia that may not be a good idea although he is asymptomatic. 3. Cerebellar stroke: It appears that his acute right medullary stroke is due to a vertebral dissection, but he also has an old right cerebellar stroke. I cannot tell from neurology consult whether this is felt to be the same origin and not to embolism, if it is thought to be embolic perhaps monitoring for atrial fibrillation would be a consideration. We have no evidence of this however." TSH and magnesium normal Please ensure cardiology followup after discharge. Notes For Next Care Provider Please ensure followup with Neurology in 4-6 weeks with plan to repeat CTA in 3 months Please ensure followup with Cardiology for Hx of ME and noted accelerated interventricular rhythm with sinus bradycardia Please ensure followup with the office of Dr Alberto for further evaluation of pt's right eye- pt declining further use of eye ointment recommended. Please continue to monitor BP and adjust meds as needed. Please ensure followup for headaches Medication Changes From Visit Plavix 75mg daily for an additional 17 days (total 21 days) aspirin 81mg daily lisinopril 10mg BID atorvastatin 40mg daily. Admission HPI Per Admitting Provider Pt is a 68yoM with PMHx significant for OA s/p left total hip arthroplasty p resenting with with gait unsteadiness/imbalance where he states he falls to the right. Hx obtained mostly from pt, sister also at bedside. Pt states that he started noticing the difficulty with ambulation from the day before, has been leaning to the right when he falls. States he has also noted pain behind his right eye with blurry vision that started around that time. His sister does note that he wears glasses at baseline and does not have them with him currently. He denies any trauma to the right eye, states it feels swollen. He states he has been having headaches for months that started as neck pain. [place] stiff and sore. Denies trouble swallowing. Denies chest pain, SOB or palpitations. Denies N/V or abdominal pain. States he does get lower extremity swelling that seems worse at the end of the day. Notes that he does not have a pcp and is not on medications currently. Denies using any OTC medication. States he last followed with [facility] about a year and a half ago when he had his hip replaced. Admission Exam Per Admitting Provider General: Alert, orientedx3. No acute distress Skin: No noted rashes or bruises Psych: Appropriate mood and affect Neuro: right eye appears smaller than the left, sitting up with arms outstretched, pt sways to the right occasionally. Strength equal, 5/5 in both upper and lower extremities bilaterally. HEENT: NC/AT, right eye appears smaller than left CV: RRR Resp: Breath sounds clear bilaterally, no increased effort of breathing. Abdomen: Soft, nontender Extremities: Trace edema in lower extremities bilaterally. Discharge Exam General: Alert, orientedx3. No acute distress Skin: No noted rashes or bruises Psych: Appropriate mood and affect Neuro: right eye appears smaller than the left HEENT: NC/AT CV: RRR Resp: Breath sounds clear bilaterally, no increased effort of breathing. Abdomen: nontender Extremities: Trace edema in lower extremities bilaterally. Updated Medication List Medication Instructions Recorded Confirmed Type aspirin 81 mg tablet,delayed 81 mg PO DAILY #30 tabs 02/06/24 Rx release atorvastatin 40 mg tablet 40 mg PO QAM #30 tabs 02/06/24 Rx clopidogrel 75 mg tablet 75 mg PO QAM #17 tabs 02/06/24 Rx lisinopril 10 mg tablet 10 mg PO BID #60 tabs 02/06/24 Rx Hospital Stay Data Consultations 02/02/24 11:21 ED Decision to Admit Stat 02/02/24 13:18 Consult Neurology Routine 02/04/24 07:35 Consult Cardiology Routine 02/05/24 09:58 Consult Cardiac Electrophysiology Routine Diagnostic Imagining Performed 02/02/24 09:21 CT head/brain wo con Stat CTA head w con [CT angio head w con] Stat CTA neck with con [CT angio neck with con] Stat 02/02/24 12:04 MRI Brain [MR brain wo/w con] Urgent Chest X-Ray 02/02/24 09:21 XR chest 1V portable HISTORY: Stroke symptoms. COMPARISON: None. FINDINGS: No pneumothorax. No pleural effusions. No focal lung consolidations to suggest a pneumonia. No evidence for pulmonary edema. The cardiac silhouette is mildly enlarged. No acute fractures. IMPRESSION: Mild cardiomegaly. Otherwise, no acute process within the chest. ACT 112: Negative or not required by law. Electronically signed by: Floyd Carvalho M.D. 02/02/2024 10:[address] 02/02/24 09:[address] DOSE: HISTORY: Neuro deficit, acute, stroke suspected TECHNIQUE: Multiaxial CT images of the head were performed without the use of intravenous contrast. Automated exposure control was utilized for this study. A dose lowering technique was utilized adhering to the principles of ALARA. Comparison: None. Findings: The paranasal sinuses and mastoid air cells are clear. The calvarium and skull base are intact. There is no mass, hematoma, midline shift, acute infarct. White matter hypodensity is nonspecific but suggestive of microvascular ischemic change. The ventricles and sulci demonstrate mild age-related involutional changes. Cephalization within the right inferior cerebellar hemisphere consistent with an old infarct. Impression: 1. No acute infarct or intracranial hemorrhage. 2. Old right cerebellar infarct. ACT 112: Negative or not required by law. Electronically signed by: Floyd Carvalho M.D. 02/02/2024 10:09 AM Head CTA 02/02/24 09:21 CT angio head w con, CT angio neck with con CLINICAL HISTORY: 68 years-old Male with gait instability - falling to R side. Acute strokelike symptoms COMPARISON STUDY: Head CT of same day TECHNIQUE: Following the IV administration of Optiray, CT angiogram of the head and neck was performed from the aortic arch to the skull apex. Images are reviewed in the axial, sagittal, and coronal planes. 3-D MIPS images are created and assessed. IV contrast was administered without complication. All measurements were obtained according to NASCET criteria. A dose lowering technique was utilized adhering to the principles of ALARA. CT DOSE: 1083.87 mGy.cm FINDINGS: CT ANGIOGRAM OF THE HEAD AND NECK: Three-vessel morphology of the thoracic aortic arch. There is patency of the innominate and image subclavian arteries. Common carotid arteries are patent. There is at least moderate atherosclerosis of the carotid bulbs and proximal cervical segments of the internal carotid arteries. There is less than 50% stenosis of the proximal cervical segment right ICA. There is approximately 60% stenosis of the proximal cervical segment left ICA. There is multifocal luminal narrowing of the right greater than left middle cerebral arteries which is probably mild. Mild stenosis of the anterior cerebral arteries. Dominant left vertebral artery which is patent. Atherosclerosis of the V4 segment results in mild stenosis. The right vertebral artery is developmentally diminutive and appears to terminate within the right PICA. There is mild to moderate multifocal stenoses within the posterior cerebral arteries.. Dural sinuses appear patent. Chronic appearing right cerebellar infarct. Lung apices are clear without pneumothorax. Unremarkable soft tissues. IMPRESSION: 1. Atherosclerotic plaque of the carotid bulbs results in 60% stenosis of the proximal cervical segment left ICA. 2. Mild multifocal stenoses of the intracranial arteries. 3. Chronic right cerebellar infarct. 4. No aneurysm, dissection, high-grade stenosis or arterial occlusion identified. ACT 112: Negative or not required by law. The above report was generated using voice recognition software. It may contain grammatical, syntax or spelling errors. Electronically signed by: Michael Beach M.D. 02/02/2024 10:18 AM Neck CTA 02/02/24 09:21 CT angio head w con, CT angio neck with con CLINICAL HISTORY: 68 years-old Male with gait instability - falling to R side. Acute strokelike symptoms COMPARISON STUDY: Head CT of same day TECHNIQUE: Following the IV administration of Optiray, CT angiogram of the head and neck was performed from the aortic arch to the skull apex. Images are reviewed in the axial, sagittal, and coronal planes. 3-D MIPS images are created and assessed. IV contrast was administered without complication. All measurements were obtained according to NASCET criteria. A dose lowering technique was utilized adhering to the principles of ALARA. CT DOSE: 1083.87 mGy.cm FINDINGS: CT ANGIOGRAM OF THE HEAD AND NECK: Three-vessel morphology of the thoracic aortic arch. There is patency of the innominate and image subclavian arteries. Common carotid arteries are patent. There is at least moderate atherosclerosis of the carotid bulbs and proximal cervical segments of the internal carotid arteries. There is less than 50% stenosis of the proximal cervical segment right ICA. There is approximately 60% stenosis of the proximal cervical segment left ICA. There is multifocal luminal narrowing of the right greater than left middle cerebral arteries which is probably mild. Mild stenosis of the anterior cerebral arteries. Dominant left vertebral artery which is patent. Atherosclerosis of the V4 segment results in mild stenosis. The right vertebral artery is developmentally diminutive and appears to terminate within the right PICA. There is mild to moderate multifocal stenoses within the posterior cerebral arteries.. Dural sinuses appear patent. Chronic appearing right cerebellar infarct. Lung apices are clear without pneumothorax. Unremarkable soft tissues. IMPRESSION: 1. Atherosclerotic plaque of the carotid bulbs results in 60% stenosis of the proximal cervical segment left ICA. 2. Mild multifocal stenoses of the intracranial arteries. 3. Chronic right cerebellar infarct. 4. No aneurysm, dissection, high-grade stenosis or arterial occlusion identified. ACT 112: Negative or not required by law. The above report was generated using voice recognition software. It may contain grammatical, syntax or spelling errors. Electronically signed by: Michael Beach M.D. 02/02/2024 10:18 AM Brain MRI 02/02/24 12:04 MRI OF THE BRAIN WITHOUT AND WITH IV CONTRAST CLINICAL HISTORY: r/o stroke, falls to right COMPARISON STUDY: Head CT and CTA of the head performed earlier today. TECHNIQUE: Utilizing a 1.5 Maday magnet and dedicated coil, multiplanar, multiecho imaging of the brain was performed pre and postcontrast administration. IV administration of 11.6 mL of Gadavist contrast was uneventful. FINDINGS: There is a small 3 mm round focus of restricted diffusion within the right aspect of the medulla oblongata on axial diffusion-weighted sequence image . This is hypointense on the ADC map. There is corresponding T2 hyperintensity. There is no mass effect. There is no evidence for acute hemorrhage. No additional acute infarcts are present. An old infarct within the inferior right cerebellar hemisphere is present. The ventricular system is unremarkable. The basal cisterns are patent. There are no extra-axial collections. Flow-voids for the major intracranial vessels are present. There is no intracanalicular mass or pathologic enhancement. Scattered white matter T2 hyperintense foci represent moderate small vessel disease. Calvarial signal is normal. IMPRESSION: 1. Small 3 mm acute infarct within the right aspect of the medulla oblongata. No additional acute infarcts. 2. Old right cerebellar infarct. 3. No intracranial mass or pathologic enhancement. ACT 112: Negative or not required by law. Electronically signed by: Slade Murdock M.D. 02/02/2024 6:52 PM Discharge Instructions Given to Patient (Per Discharging Provider) Mr. Riddle, You were treated for an acute stroke. We also noted that you have had an old stroke in the past. You were seen by the Neurologist and they recommended that you take the medication Plavix for 17 more days to complete a 21 day course. Continue taking a daily aspirin everyday. We also started you on the cholesterol medication atorvastatin, continue to take that every day. Continue with physical therapy at acute rehab. neurology recommends that you follow up with neurology in 4-6 weeks with plan to repeat CTA in 3 months. For headache management, continue with tylenol and follow up as an outpatient. We started you on the medication lisinopril to help with your blood pressure. Please take as prescribed. We also noted that your heart rate runs low and that you have an additional rhythm. They also noted that you had a heart attack in the past. 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 They did not add any additional ones. Please keep close follow up with Cardiology after discharge. We also spoke with the eye doctor. They recommended the eye ointment but you w ould prefer to discontinue use. Please keep follow up with the office of Dr Alberto after discharge. Please keep close follow up with your primary care provider after discharge. Please do not hesitate to come back to the emergency room if your symptoms worsen or return. It was a pleasure taking care of you while you were here. Total Time Total Time Spent Total Time Spent (In Minutes): 75
== END 2024-02-06 13:20 | DRG 64 ==
LOC: ED 08:57 → 2N 11:46